=== PATIENT | male | born 1940 | race Caucasian/White ===

== ENCOUNTER → 2017-05-12 | Outpatient (CLI) | payer MEDICARE ==
[~2017-05-12] MED LIST: ACET325 PO; ALBU90OI INH; ALBU90OI61 INH; AMLO5 PO; ASCO500 PO; ASPI81CH PO; ASPI81EC PO; AZIT500 PO; BENA20 PO; DULERA 200 MCG/13 GM INH; FINA5 PO; FLONASE ALLERG9.9 ML; GUAI600T33 PO; HYDCHL12.5 PO; LEVFLO500 PO; LEVSOD88 PO; PRED10 PO; Percocet 5-3251 EACH PO; SIMV10 PO; TAMS.4ER PO; TIOT18 INH; TRIHYD253A PO; VIT1CAPS12
== END | disposition home or self-care (01) ==
LOC: PLD 13:26 → LAB SHORT 13:26
DX: L72.0 Epidermal cyst (principal)
CPT/HCPCS: 88304; 88305

== ENCOUNTER 2021-03-28 07:44 | Inpatient (IN) | payer MEDICARE ==
[~2021-03-28] VITALS: Ht 172.7 cm; Wt 90.9 kg
[~2021-03-28 07:44] MED LIST changes: +DULERA 200 MCG-13 GM INH; -DULERA 200 MCG/13 GM INH
[2021-03-28 08:26] LABS: Hematocrit 46.2 % (37.0-53.0); Hemoglobin 15.2 g/dL (13.5-17.5); Mean Corpuscular HGB 29.5 pg (26.0-34.0); Mean Corpuscular HGB Conc 32.9 g/dL (31.5-36.5); Mean Corpuscular Volume 90 fL (80-100); Mean Platelet Volume 11.1 fL (9.1-12.4); Platelet Count 130 K/mm3 (150-400); RDW Coefficient Variation 15.9 % (11.7-14.2); RDW Standard Deviation 52.1 fL (35.1-46.3); Red Blood Cell Count 5.15 M/mm3 (4.30-5.90); White Blood Cell Count 6.58 K/mm3 (4.00-11.30)
[2021-03-28 08:51] LABS: Alanine Aminotransfer (ALT/SGP 46 U/L (12-78); Albumin, Blood 3.4 g/dL (3.4-5.0); Alk Phos 73 U/L (50-136); Anion Gap 5 mmol/L (6-16); Aspartate Aminotrans (AST/SGOT 47 U/L (12-37); BASOPHILS ABSOLUTE MAN 0.06 K/mm3 (0.00-0.23); BASOPHILS PERCENT MAN 1 % (0-2); Bilirubin, Total 0.7 mg/dL (0.1-1.0); Blood Urea Nitrogen 23 mg/dL (8-24); Bun/Creatinine Ratio 25.4 (12.0-20.0); CO2, Blood 29 mmol/L (21-32); Calcium, Blood 8.6 mg/dL (8.5-10.1); Chloride, Blood 108 mmol/L (98-108); Creatinine, Blood 0.91 mg/dL (0.60-1.20); EOSINOPHILS PERCENT MAN 0 % (0-6); Globulin, Blood 3.5 g/dL (2.2-4.0); Glomerular Filtration Rate >60 (60-); Glucose, Blood 123 mg/dL (70-99); LYMPHOCYTES ABSOLUTE MAN 0.39 K/mm3 (0.84-5.20); LYMPHOCYTES PERCENT MAN 6 % (21-46); MONOCYTES ABSOLUTE MAN 0.59 K/mm3 (0.16-1.47); MONOCYTES PERCENT MAN 9 % (4-13); MYELOCYTE ABSOLUTE MAN 0.06 K/mm3 (0.00-0.00); MYELOCYTE PERCENT MAN 1 % (0-0); NEUTROPHILS ABSOLUTE MAN 5.46 K/mm3 (1.96-9.15); Potassium, Blood 4.1 mmol/L (3.5-5.5); SEG NEUTROPHILS PERCENT MAN 83 % (41-73); Sodium, Blood 142 mmol/L (136-145); TOTAL CELLS COUNTED 100; Total Protein, Blood 6.9 g/dL (6.4-8.2); Troponin I <0.015 ng/mL (0.000-0.040)
[2021-03-28 09:30] LABS: Influenza A, PCR NEGATIVE (NEGATIVE); Influenza B, PCR NEGATIVE (NEGATIVE); Resp Syncytial Virus, PCR NEGATIVE (NEGATIVE)
[2021-03-28 09:33] LABS: SARS-Cov-2 (COVID-19) PCR, MMC POSITIVE (NEGATIVE)
--- NOTE | 2021-03-28 13:12 | NUR ---
1245 Got telephone report from Chas Sanford RN. Pt will be coming to PCU 2.
--- NOTE | 2021-03-28 15:31 | NUR ---
Call to Jayashree pt's to request that his home CPAP be brought in by a family member so that the pt can use it this evening. She said she will have one of his daughters bring it once she is off of work today.
--- NOTE | 2021-03-28 15:35 | NUR ---
Pt attempted OOB independently, setting off the bed alarm. He said that he needed to use the toilet. Assisted to BSC while on 4 l/min oxygen, and required increase to 6 l/min with the n.c. in his mouth in order to maintain spo2 greater than 90% during the activity. Audible wheezing noted. RT Garret provided a hi-flow nasal cannula for use with higher flow as needed. Pt was incontinent in attends, did not void in thebedside commode. Assisted back into bed, HOB elevated to comfort, oxygen delivery reduced back to 4 l/min.
[2021-03-28 17:49] LABS: Source, Urine Clean Catch
--- NOTE | 2021-03-28 17:49 | NUR ---
oxygen needs increased to 7 l/min while eating dinner
[2021-03-28 17:53] LABS: Bilirubin, Urine Neg (Neg); Blood, Urine 2+ (Neg); Color, Urine Yellow (P-Yellow); Glucose Qualitative, Urine Neg (Neg); Ketones, Urine 1+ (Neg); Leukocyte Esterase, Urine 2+ (Neg); Nitrite, Urine Neg (Neg); Protein, Urine 2+ (Neg); Specific Gravity, Urine 1.025 (1.003-1.022); Urobilinogen, Urine NORM (Normal)
[2021-03-28 18:06] LABS: Appearance, Urine Hazy (Clear)
[2021-03-28 18:09] LABS: Bacteria Many /hpf; Calcium Oxalate Crystals Few /hpf; Hyaline Casts Rare /lpf (0-2); Squamous Epithelial Cells Few /hpf (Few)
--- NOTE | 2021-03-28 18:44 | NUR ---
Pt is very forgetful. States he is going home tomorrow. STates he has not seen a doctor. Difficulty remembering how to use the call light. Bed alarm is on.
[2021-03-29 04:26] LABS: BASOPHILS ABSOLUTE AUTO 0.01 K/mm3 (0.00-0.23); BASOPHILS PERCENT AUTO 0 % (0-2); EOSINOPHILS PERCENT AUTO 0 % (0-6); Hematocrit 48.9 % (37.0-53.0); Hemoglobin 15.4 g/dL (13.5-17.5); IMMATURE GRAN ABSOLUTE AUTO 0.02 K/mm3 (0.00-0.10); IMMATURE GRAN PERCENT AUTO 0 % (0-1); LYMPHOCYTES ABSOLUTE AUTO 0.33 K/mm3 (0.84-5.20); LYMPHOCYTES PERCENT AUTO 6 % (21-46); MONOCYTES ABSOLUTE AUTO 0.46 K/mm3 (0.16-1.47); MONOCYTES PERCENT AUTO 9 % (4-13); Mean Corpuscular HGB 28.5 pg (26.0-34.0); Mean Corpuscular HGB Conc 31.5 g/dL (31.5-36.5); Mean Corpuscular Volume 91 fL (80-100); Mean Platelet Volume 10.7 fL (9.1-12.4); NEUTROPHILS ABSOLUTE AUTO 4.57 K/mm3 (1.96-9.15); NEUTROPHILS PERCENT AUTO 85 % (41-73); Platelet Count 144 K/mm3 (150-400); RDW Coefficient Variation 15.9 % (11.7-14.2); RDW Standard Deviation 52.8 fL (35.1-46.3); White Blood Cell Count 5.39 K/mm3 (4.00-11.30)
[2021-03-29 05:26] LABS: Albumin, Blood 3.1 g/dL (3.4-5.0); Anion Gap 7 mmol/L (6-16); Blood Urea Nitrogen 24 mg/dL (8-24); Bun/Creatinine Ratio 30.9 (12.0-20.0); CO2, Blood 26 mmol/L (21-32); Calcium, Blood 8.5 mg/dL (8.5-10.1); Chloride, Blood 108 mmol/L (98-108); Creatinine, Blood 0.78 mg/dL (0.60-1.20); Glomerular Filtration Rate >60 (60-); Glucose, Blood 145 mg/dL (70-99); Magnesium, Blood 2.3 mg/dL (1.6-2.4); Potassium, Blood 4.8 mmol/L (3.5-5.5); Sodium, Blood 141 mmol/L (136-145)
--- NOTE | 2021-03-29 12:48 | NUR ---
Spoke with the pt's , Jayashree by phone to give her an update on the pt condition. States that her daughter Jj will be visiting him today during visiting hours.
--- NOTE | 2021-03-29 13:07 | NUR ---
Noted pt had fallen asleep while sitting up in chair, after eating lunch. Assisted to stand with gait belt and walker and transfered to bed for a nap. Hypoxia to 85% noted on 4 l/min; up to 8 l/min for recovery, now on 6 l/min spo2 is 89-90% while sitting in the bed, HOB elevated 30 degrees. Light dimmed for sleep. Bed alarm is on.
--- NOTE | 2021-03-29 13:47 | NUR ---
Oxygen delivery reduced to 4 l/min; pt had spo2 of 96% on 6 l/min at rest while napping. Spo2 following the adjustment is now 91-92%.
--- NOTE | 2021-03-29 16:56 | NUR ---
Encouraged pt to use flutter valve, and to sit on side of bed or in chair for all meals. Daughter Jj is at the bedside; she is also reinforcing this pt teaching as well. Jj states that she is willing to be the caregiver night time babysitter for the pt should he be in need of one at time of discharge. The pt and his family do NOT want him to be discharged to SNF for any reason. Jj states emphatically that she is comfortable as a WEB PRESS OPERATOR APPRENTICE to care for her dad at his home.
--- NOTE | 2021-03-29 17:16 | NUR ---
I attempted to visit the patient in his [facility] room PCU02 and was unable to. I also called his spouse Michelle [phone] and left a message. I also tried to call his daughter Bianca Scott [phone].
[2021-03-30 04:10] LABS: BASOPHILS ABSOLUTE AUTO 0.01 K/mm3 (0.00-0.23); BASOPHILS PERCENT AUTO 0 % (0-2); EOSINOPHILS PERCENT AUTO 0 % (0-6); Hematocrit 44.4 % (37.0-53.0); Hemoglobin 14.2 g/dL (13.5-17.5); IMMATURE GRAN ABSOLUTE AUTO 0.05 K/mm3 (0.00-0.10); IMMATURE GRAN PERCENT AUTO 1 % (0-1); LYMPHOCYTES ABSOLUTE AUTO 0.23 K/mm3 (0.84-5.20); LYMPHOCYTES PERCENT AUTO 3 % (21-46); MONOCYTES ABSOLUTE AUTO 0.75 K/mm3 (0.16-1.47); MONOCYTES PERCENT AUTO 9 % (4-13); Mean Corpuscular HGB 28.9 pg (26.0-34.0); Mean Corpuscular Volume 90 fL (80-100); NEUTROPHILS ABSOLUTE AUTO 7.72 K/mm3 (1.96-9.15); NEUTROPHILS PERCENT AUTO 88 % (41-73); Platelet Count 149 K/mm3 (150-400); RDW Coefficient Variation 15.9 % (11.7-14.2); RDW Standard Deviation 52.8 fL (35.1-46.3); Red Blood Cell Count 4.91 M/mm3 (4.30-5.90); White Blood Cell Count 8.76 K/mm3 (4.00-11.30)
[2021-03-30 05:00] LABS: Albumin, Blood 2.7 g/dL (3.4-5.0); Anion Gap 6 mmol/L (6-16); Blood Urea Nitrogen 35 mg/dL (8-24); Bun/Creatinine Ratio 39.1 (12.0-20.0); CO2, Blood 28 mmol/L (21-32); Calcium, Blood 7.8 mg/dL (8.5-10.1); Chloride, Blood 106 mmol/L (98-108); Creatinine, Blood 0.89 mg/dL (0.60-1.20); Glomerular Filtration Rate >60 (60-); Glucose, Blood 131 mg/dL (70-99); Magnesium, Blood 2.2 mg/dL (1.6-2.4); Phosphorus, Blood 3.9 mg/dL (2.5-4.9); Potassium, Blood 4.6 mmol/L (3.5-5.5); Sodium, Blood 140 mmol/L (136-145)
--- NOTE | 2021-03-30 05:55 | NUR ---
SHIFT SUMMARY PATIENT A&OX4, WITH OCCASIONAL ANXIETY AND GENERALIZED WEAKNESS. FORGETFULL AT TIMES. ON HOME DOSE OF 4L NC SATING LOW 90'S. 6L WITH EXERTIONAL ACTIVITY. STATES NO MORE SOB THEN USUAL. SR/ST ON THE MONITOR. NO PAIN OR DISTRESS NOTED UPON ASSESSMENT. TOLERATING MECH SOFT DIET WITHOUT ISSUE. ENCOURAGING SELF TURNING IN BED. INCONTINENT IN BRIEF AT TIMES AND CALLS RN APPROPRIATLY TO BE CHANGED.NO ACUTE CONCERNS AT THIS TIME. WILL CONTINUE PLAN OF CARE UNTIL REPORT GIVEN TO DAYSHIFT RN.
--- NOTE | 2021-03-30 18:17 | NUR ---
SHIFT SUMMARY; ASSUMED CARE AT 0700. 4L O2 VIA NC WITH CPAP AT NOC. A/A/OX4, REPOSITIONS SELF IN BED NEEDED. INCONTINANT DURING SHIFT WITH ATTENDS AND BEDDING CHANGE. ASSISTED TO CHAIR AT BEDSIDE FOR MEALS. DESATS WITH EXERTION BUT RECOVERS WITHIN 5 MINS. VSS, [employer] O2 SAT 92%. L/S DIM-WHEEZE T/O. WILL CONTINUE TO MONITOR AND TREAT UNTIL CHANGE OF SHIFT.
[2021-03-31 04:16] LABS: BASOPHILS ABSOLUTE AUTO 0.01 K/mm3 (0.00-0.23); BASOPHILS PERCENT AUTO 0 % (0-2); EOSINOPHILS PERCENT AUTO 0 % (0-6); Hematocrit 45.9 % (37.0-53.0); Hemoglobin 14.6 g/dL (13.5-17.5); IMMATURE GRAN ABSOLUTE AUTO 0.05 K/mm3 (0.00-0.10); IMMATURE GRAN PERCENT AUTO 1 % (0-1); LYMPHOCYTES ABSOLUTE AUTO 0.19 K/mm3 (0.84-5.20); LYMPHOCYTES PERCENT AUTO 2 % (21-46); MONOCYTES ABSOLUTE AUTO 0.71 K/mm3 (0.16-1.47); MONOCYTES PERCENT AUTO 7 % (4-13); Mean Corpuscular HGB 28.9 pg (26.0-34.0); Mean Corpuscular HGB Conc 31.8 g/dL (31.5-36.5); Mean Corpuscular Volume 91 fL (80-100); Mean Platelet Volume 11.3 fL (9.1-12.4); NEUTROPHILS ABSOLUTE AUTO 9.86 K/mm3 (1.96-9.15); NEUTROPHILS PERCENT AUTO 91 % (41-73); Platelet Count 136 K/mm3 (150-400); RDW Coefficient Variation 15.9 % (11.7-14.2); RDW Standard Deviation 53.1 fL (35.1-46.3); Red Blood Cell Count 5.05 M/mm3 (4.30-5.90); White Blood Cell Count 10.82 K/mm3 (4.00-11.30)
[2021-03-31 04:32] LABS: Albumin, Blood 2.6 g/dL (3.4-5.0); Anion Gap 3 mmol/L (6-16); Blood Urea Nitrogen 36 mg/dL (8-24); Bun/Creatinine Ratio 48.7 (12.0-20.0); C-REACTIVE PROTEIN, EXT RANGE 0.856 mg/dL (0.000-0.300); CO2, Blood 30 mmol/L (21-32); Chloride, Blood 107 mmol/L (98-108); Creatinine, Blood 0.74 mg/dL (0.60-1.20); Glomerular Filtration Rate >60 (60-); Glucose, Blood 140 mg/dL (70-99); Magnesium, Blood 2.3 mg/dL (1.6-2.4); Potassium, Blood 4.7 mmol/L (3.5-5.5); Sodium, Blood 140 mmol/L (136-145)
--- NOTE | 2021-03-31 06:21 | NUR ---
PT A/OX4. ATTEMPTED TO WEAN DOWN FROM 8LO2NC BLEEDING INTO CPAP. POORLY TOLERATED. O2 SAT 87% ON 6L O2 CPAP. CONTINUE ON 8L AT THIS TIME.
--- NOTE | 2021-03-31 10:46 | NUR ---
PATIENT ALERT AND ORIENTED X4. AT TIMES A LITTLE SLOW TO RESPOND. PERRLA. DENIES NUMBNESS/TINGLING. ABLE TO MOVE ALL EXTREMITIES. SLIGHT WEAKNESS THROUGHOUT. SKIN OVERALL PALE AND FRAGILE. TELE SHOWING SINUS RHYTHM WITH HR 80'S. DENIES CHEST PAIN/PRESSURE. BP STABLE. ON 9L O2 HIGH FLOW NASAL CANNULA AT THIS TIME. WILL ASSESS AND TITRATE NEEDED THROUGHOUT SHIFT. LUNGS SOUNDING TIGHT AND DIMINISHED. PATIENT HAS HISTORY OF LUNG CANCER WITH RADIATION. FREQUENT DRY COUGH. DENIES SPUTUM PRODUCTION AND DENIES NEED FOR ANY COUGH MEDICINE. DENIES ABDOMINAL PAIN/NAUSEA. USING URINAL IN BED, PRODUCING FREQUENT SMALL AMOUNTS OF URINE. TOLERATING PO DIET AND MEDS. ANTIBIOTICS INFUSING AT THIS TIME. DR. PRADO IN TO SEE PATIENT THIS AM, UPDATED ON O2 NEED AND BLOOD CULTURES. CALL LIGHT IN REACH. WILL CONTINUE TO MONITOR.
--- NOTE | 2021-03-31 18:44 | NUR ---
SHIFT SUMMARY: PATIENT REMAINS ALERT AND ORIENTED. DAUGHTER AT BEDSIDE DURING VISITING HOURS. PATIENT ON 8-12 L THROUGHOUT DAY. DURING EVENING PATIENT TRANSITIONED TO BIPAP WITH 7L 02 BLEED IN SATING LOW 90'S. DESATS TO LOW 80'S WITH MOVEMENT. NO CHANGES IN TELE. CONTINUE TO HAVE DRY/TIGHT COUGH. DENIES COUGH MEDICINES. ANTIBIOTICS AND ANTIVIRAL INFUSED. PATIENT ANXIOUS TO GET HOME AND KEEPS ASKING WHEN HE CAN GET OUT OF HERE. CALL LIGHT IN REACH. CALLING APPROPRIATELY. VITAL SIGNS STABLE. DENIES NEEDS AT THIS TIME. WILL CONTINUE TO MONITOR AND REPORT OFF.
[2021-04-01 04:04] LABS: BASOPHILS ABSOLUTE AUTO 0.01 K/mm3 (0.00-0.23); BASOPHILS PERCENT AUTO 0 % (0-2); EOSINOPHILS PERCENT AUTO 0 % (0-6); Hematocrit 44.5 % (37.0-53.0); Hemoglobin 14.3 g/dL (13.5-17.5); IMMATURE GRAN ABSOLUTE AUTO 0.05 K/mm3 (0.00-0.10); IMMATURE GRAN PERCENT AUTO 1 % (0-1); LYMPHOCYTES ABSOLUTE AUTO 0.19 K/mm3 (0.84-5.20); LYMPHOCYTES PERCENT AUTO 3 % (21-46); MONOCYTES ABSOLUTE AUTO 0.43 K/mm3 (0.16-1.47); MONOCYTES PERCENT AUTO 6 % (4-13); Mean Corpuscular HGB 29.2 pg (26.0-34.0); Mean Corpuscular HGB Conc 32.1 g/dL (31.5-36.5); Mean Corpuscular Volume 91 fL (80-100); Mean Platelet Volume 11.7 fL (9.1-12.4); NEUTROPHILS ABSOLUTE AUTO 6.11 K/mm3 (1.96-9.15); NEUTROPHILS PERCENT AUTO 90 % (41-73); Platelet Count 125 K/mm3 (150-400); RDW Coefficient Variation 15.6 % (11.7-14.2); RDW Standard Deviation 52.1 fL (35.1-46.3); White Blood Cell Count 6.79 K/mm3 (4.00-11.30)
[2021-04-01 04:41] LABS: Albumin, Blood 2.5 g/dL (3.4-5.0); Anion Gap 5 mmol/L (6-16); Blood Urea Nitrogen 36 mg/dL (8-24); Bun/Creatinine Ratio 51.6 (12.0-20.0); CO2, Blood 29 mmol/L (21-32); Calcium, Blood 7.8 mg/dL (8.5-10.1); Chloride, Blood 108 mmol/L (98-108); Glomerular Filtration Rate >60 (60-); Glucose, Blood 149 mg/dL (70-99); Magnesium, Blood 2.3 mg/dL (1.6-2.4); Phosphorus, Blood 3.2 mg/dL (2.5-4.9); Potassium, Blood 4.8 mmol/L (3.5-5.5); Sodium, Blood 142 mmol/L (136-145)
--- NOTE | 2021-04-01 10:01 | NUR ---
PATIENT ALERT AND ORIENTED X4 FOR THE MOST PART. AT TIMES SLOW RESPONSES AND CONFUSING STATEMENTS. CONTINUE TO REINFORCE EDUCATION. PERRLA. DENIES NUMBNESS/TINLGING. ABLE TO MOVE ALL EXTREMITIES IN BED. USING WALKER TO TRANSFER TO RECLINER. AZAM HOSE STOCKINGS IN PLACE. EDEMA NOTED IN BILATERAL LOWER AND UPPER EXTREMITIES. TELE SHOWING SINUS RHYTHM WITH HR 70'S. DENIES CHEST PAIN/PRESSURE. VITAL SIGNS STABLE. ON 12L O2 HIGH FLOW NASAL CANNULA. PATIENT MOUTH BREATHING AND NASAL CANNULA IN MOUTH AT THIS TIME SATING 89-93%. DESATS WITH MOVEMENT. RIGHT SIDE OF LUNGS SOUNDING TIGHT WITH MINIMAL EXPIRATORY WHEEZE. ABLE TO HEAR MORE AIR MOVEMENT FROM LEFT SIDE OF LUNGS. OVERALL DIMINISHED IN BASES. DRY COUGH. NOT PRODUCING ANY SPUTUM. PATIENT STATES HE HAS HAD THAT COUGH FOREVER. DENIES NEED FOR ANY TYPE OF COUGH MEDICINE. DENIES ABDOMINAL PAIN/NAUSEA. TOLERATING PO DIET. ATTENDS IN PLACE. USING URINAL AND PRODUCING SMALL AMOUNTS OF URINE, THAT IS TALAT COLORED. ANTIBIOTICS INFUSED. CALL LIGHT IN REACH. CHAIR ALARM IN RECLINER AT THIS TIME. WILL CONTINUE TO MONITOR.
--- NOTE | 2021-04-01 18:38 | NUR ---
SHIFT SUMMARY: NO ACUTE CHANGES. VITAL SIGNS REMAIN STABLE. NO CHANGES IN TELE. UP IN RECLINER FOR MOST OF THE DAY. DAUGHTER IN TO VISIT. REMAINS ON HIGH FLOW NASAL CANNULA AT THIS TIME ON 9L SATING 90-93%. DENIES SOB. COUGH REMAINS UNCHANGED. USING PICKLE AND INCENTIVE SPIROMETER IN ROOM. EATING WELL. WATCHING TV AT THIS TIME. DENIES NEEDS. WILL CONTINUE TO MONITOR AND REPORT OFF.
--- NOTE | 2021-04-01 21:59 | NUR ---
ASSUMED CARE OF PATIENT AT 1900. A/OX3 WITH BEING UNABLE TO SAY WHY HE HIS HERE. REPORTS NO PAIN, CP/PRESSURE, N/V. MAINTAINING 89-92% ON 9L NC PLACED IN HIS MOUTH (MOUTH BREATHER). DESATS WITH ACTIVITY BUT RECOVERS QUICKLY. LS EXPIRATORY WHEEZE IN UPPER LOBES AND DIM LOWER. OCCASIONAL DRY COUGH. BLE 1+ MINIMAL EDEMA, TRACE IN HANDS. PATIENT SEEMS VERY WITHDRAWN. WILL UPDATE CHANGES OCCUR.
[2021-04-02 03:56] LABS: BASOPHILS ABSOLUTE AUTO 0.02 K/mm3 (0.00-0.23); BASOPHILS PERCENT AUTO 0 % (0-2); EOSINOPHILS PERCENT AUTO 0 % (0-6); Hematocrit 44.9 % (37.0-53.0); Hemoglobin 14.7 g/dL (13.5-17.5); IMMATURE GRAN PERCENT AUTO 1 % (0-1); LYMPHOCYTES ABSOLUTE AUTO 0.24 K/mm3 (0.84-5.20); LYMPHOCYTES PERCENT AUTO 3 % (21-46); MONOCYTES ABSOLUTE AUTO 0.53 K/mm3 (0.16-1.47); MONOCYTES PERCENT AUTO 6 % (4-13); Mean Corpuscular HGB 29.1 pg (26.0-34.0); Mean Corpuscular HGB Conc 32.7 g/dL (31.5-36.5); Mean Corpuscular Volume 89 fL (80-100); Mean Platelet Volume 11.4 fL (9.1-12.4); NEUTROPHILS ABSOLUTE AUTO 7.99 K/mm3 (1.96-9.15); NEUTROPHILS PERCENT AUTO 90 % (41-73); Platelet Count 135 K/mm3 (150-400); RDW Coefficient Variation 15.3 % (11.7-14.2); RDW Standard Deviation 50.1 fL (35.1-46.3); Red Blood Cell Count 5.05 M/mm3 (4.30-5.90); White Blood Cell Count 8.88 K/mm3 (4.00-11.30)
[2021-04-02 04:12] LABS: Albumin, Blood 2.5 g/dL (3.4-5.0); Anion Gap 1 mmol/L (6-16); Blood Urea Nitrogen 35 mg/dL (8-24); Bun/Creatinine Ratio 51.2 (12.0-20.0); C-REACTIVE PROTEIN, EXT RANGE 0.321 mg/dL (0.000-0.300); CO2, Blood 31 mmol/L (21-32); Calcium, Blood 8.1 mg/dL (8.5-10.1); Chloride, Blood 107 mmol/L (98-108); Creatinine, Blood 0.68 mg/dL (0.60-1.20); Glomerular Filtration Rate >60 (60-); Glucose, Blood 140 mg/dL (70-99); Magnesium, Blood 2.4 mg/dL (1.6-2.4); Phosphorus, Blood 3.2 mg/dL (2.5-4.9); Potassium, Blood 4.9 mmol/L (3.5-5.5); Sodium, Blood 139 mmol/L (136-145)
--- NOTE | 2021-04-02 18:49 | NUR ---
PT SUMMARY: PT REMAINED ON 9L OF O2 VIA HIFLO NASAL CANNULA, BIPAP AT BEDSIDE. ALERT AND ORIENTED X3 WITH MILD CONFUSION, WAS WANTING TO GO HOME TODAY. VITALS BP SYSTOLIC 120-160'S, HRR SR AT 70'S, SATS ABOVE 90% DESATS TO LOW 80'S WITH EXERTION, AFEBRILE. PT WAS ABLE TO WORK WITH PT TODAY WAS UP IN THE RECLINER AFTER LUNCH UNTIL DINNER TIME. PT NOTED TO HAVE SOME HARSH MOSIT COUGH BUT COULDNT COUGH ANYTHING OUT OFFERED COUGH MEDICINE BUT DECLINED DR DIAZ IS AWARE. DECREASE APPETITE DUE TO BREATHING ISSUES. DENIES PAIN FOR THE SHIFT, WAS REPOSTIONED FOR COMFORT. NO OTHER ISSUES REPORTED, WILL REPORT TO ONCOMING SHIFT
--- NOTE | 2021-04-02 22:03 | NUR ---
ASSUMED CARE OF PT AT 1900. A/0X3 WITH CONFUSION ON WHY HE IS HERE AND THE PRESIDENT. REPORTS NO PAIN, CP/PRESSURE. DOES REPORT PRODUCTIVE COUGH HOWEVER UNABLE TO DETERMINE COLOR/CONSISTENCY. MAINTAINING 95% ON 9L FACE MASK, LS EXP WHEEZE T/O ALL ANDRADE. SR ON TELE AVG 74. UPPER AND LOWER EXTREMITIES SLIGHTLY EDEMATOUS. WILL UPDATE CHANGES OCCUR.
[2021-04-03 05:51] LABS: BASOPHILS ABSOLUTE AUTO 0.04 K/mm3 (0.00-0.23); BASOPHILS PERCENT AUTO 1 % (0-2); EOSINOPHILS PERCENT AUTO 0 % (0-6); Hematocrit 45.5 % (37.0-53.0); Hemoglobin 14.9 g/dL (13.5-17.5); IMMATURE GRAN ABSOLUTE AUTO 0.18 K/mm3 (0.00-0.10); IMMATURE GRAN PERCENT AUTO 2 % (0-1); LYMPHOCYTES ABSOLUTE AUTO 0.23 K/mm3 (0.84-5.20); LYMPHOCYTES PERCENT AUTO 3 % (21-46); MONOCYTES ABSOLUTE AUTO 0.42 K/mm3 (0.16-1.47); MONOCYTES PERCENT AUTO 5 % (4-13); Mean Corpuscular HGB 29.1 pg (26.0-34.0); Mean Corpuscular HGB Conc 32.7 g/dL (31.5-36.5); Mean Corpuscular Volume 89 fL (80-100); Mean Platelet Volume 11.7 fL (9.1-12.4); NEUTROPHILS ABSOLUTE AUTO 7.51 K/mm3 (1.96-9.15); NEUTROPHILS PERCENT AUTO 90 % (41-73); Platelet Count 159 K/mm3 (150-400); RDW Coefficient Variation 15.1 % (11.7-14.2); RDW Standard Deviation 49.7 fL (35.1-46.3); Red Blood Cell Count 5.12 M/mm3 (4.30-5.90); White Blood Cell Count 8.38 K/mm3 (4.00-11.30)
[2021-04-03 06:42] LABS: Albumin, Blood 2.4 g/dL (3.4-5.0); Anion Gap 7 mmol/L (6-16); Blood Urea Nitrogen 29 mg/dL (8-24); Bun/Creatinine Ratio 41.3 (12.0-20.0); C-REACTIVE PROTEIN, EXT RANGE <0.290 mg/dL (0.000-0.300); CO2, Blood 28 mmol/L (21-32); Chloride, Blood 104 mmol/L (98-108); Glomerular Filtration Rate >60 (60-); Glucose, Blood 144 mg/dL (70-99); Phosphorus, Blood 3.4 mg/dL (2.5-4.9); Sodium, Blood 139 mmol/L (136-145)
[2021-04-03 17:35] LABS: PCO2 Arterial 46.6 mmHg (35-45); PO2 Arterial 50.6 mmHg (80-100); pH Blood Arterial 7.44 (7.35-7.45)
--- NOTE | 2021-04-03 18:00 | NUR ---
AIRVO PT ON 15L HI-LAKHWINDER NC, SITTING UP IN CHAIR, EATING DINNER. THIS RN TO PT RM D/T BIOX ALARMING IN THE 80's. PT COUGHING IN RM W/ DESAT LOW 78%. 15L NRB APPLIED IN ADDITION TO 15L HI-LAKHWINDER NC. SPO2 INCREASE TO 90-95%. RT TO RM W/ ARIVO FOR PT.
--- NOTE | 2021-04-03 18:46 | NUR ---
SHIFT SUMMARY PT A&O X3 W/ SOME FORGETFULNESS. PT VSS. MONITOR SHOWING SR, HR 70's. LUNG SOUNDS W/ WHEEZE T/O. PT DESAT W/ ACTIVITY. PT REPORTING PT ON RA DURING THE DAY BUT REQUIRES 4L NC W/ ACTIVITY @ BASELINE. PT W/ DESAT TO 78% ON 15L HI-LAKHWINDER NC WHEN COUGHING IN RM. 15L NRB APPLIED IN ADDITION TO 15L HI-LAKHWINDER NC. PT SPO2 > 92% ON AIRVO @ 50L FIO2 93%, PT TOLERATING WELL. SPOUSE AT BEDSIDE DURING TRANSITION TO AIRVO.
[2021-04-04 00:28] LABS: Source, Urine Catheter
[2021-04-04 00:30] LABS: Bilirubin, Urine Neg (Neg); Blood, Urine 3+ (Neg); Glucose Qualitative, Urine Neg (Neg); Ketones, Urine Neg (Neg); Leukocyte Esterase, Urine Neg (Neg); Nitrite, Urine Neg (Neg); Protein, Urine Neg (Neg); Specific Gravity, Urine 1.015 (1.003-1.022); Urobilinogen, Urine 1+ (Normal)
[2021-04-04 00:32] LABS: Appearance, Urine Clear (Clear); Color, Urine Yellow (P-Yellow)
[2021-04-04 00:36] LABS: Bacteria Not Seen /hpf; Renal Epithelial Rare /hpf (0-Rare); Squamous Epithelial Cells Not Seen /hpf (Few); White Blood Cells, Urine Not Seen /hpf (0-5)
[2021-04-04 00:37] LABS: Uric Acid Crystals Few /hpf
[2021-04-04 05:01] LABS: Base Excess Venous 9.5 mmol/L; Bicarbonate Venous 31.9 mmol/L (24.0-30.0); PCO2 Venous 47.1 mmHg (38-42); PO2 Venous 113 mmHg (38-42); pH Blood Venous 7.46 (7.34-7.37)
[2021-04-04 05:01] LABS: BASOPHILS ABSOLUTE AUTO 0.09 K/mm3 (0.00-0.23); BASOPHILS PERCENT AUTO 1 % (0-2); EOSINOPHILS PERCENT AUTO 0 % (0-6); Hematocrit 44.2 % (37.0-53.0); Hemoglobin 14.6 g/dL (13.5-17.5); IMMATURE GRAN ABSOLUTE AUTO 0.55 K/mm3 (0.00-0.10); IMMATURE GRAN PERCENT AUTO 5 % (0-1); LYMPHOCYTES ABSOLUTE AUTO 0.19 K/mm3 (0.84-5.20); LYMPHOCYTES PERCENT AUTO 2 % (21-46); MONOCYTES ABSOLUTE AUTO 0.52 K/mm3 (0.16-1.47); MONOCYTES PERCENT AUTO 5 % (4-13); Mean Corpuscular HGB 29.2 pg (26.0-34.0); Mean Corpuscular Volume 88 fL (80-100); Mean Platelet Volume 11.4 fL (9.1-12.4); NEUTROPHILS ABSOLUTE AUTO 9.24 K/mm3 (1.96-9.15); NEUTROPHILS PERCENT AUTO 87 % (41-73); Platelet Count 179 K/mm3 (150-400); RDW Coefficient Variation 14.9 % (11.7-14.2); RDW Standard Deviation 48.6 fL (35.1-46.3); White Blood Cell Count 10.59 K/mm3 (4.00-11.30)
[2021-04-04 05:21] LABS: Albumin, Blood 2.4 g/dL (3.4-5.0); Anion Gap 4 mmol/L (6-16); Blood Urea Nitrogen 31 mg/dL (8-24); CO2, Blood 31 mmol/L (21-32); Calcium, Blood 7.9 mg/dL (8.5-10.1); Chloride, Blood 104 mmol/L (98-108); Creatinine, Blood 0.66 mg/dL (0.60-1.20); Glomerular Filtration Rate >60 (60-); Glucose, Blood 150 mg/dL (70-99); Magnesium, Blood 2.5 mg/dL (1.6-2.4); Phosphorus, Blood 3.4 mg/dL (2.5-4.9); Potassium, Blood 5.3 mmol/L (3.5-5.5); Sodium, Blood 139 mmol/L (136-145)
[2021-04-04 05:51] LABS: BASOPHILS PERCENT MAN 0 % (0-2); EOSINOPHILS PERCENT MAN 0 % (0-6); LYMPHOCYTES ABSOLUTE MAN 0.21 K/mm3 (0.84-5.20); LYMPHOCYTES PERCENT MAN 2 % (21-46); MONOCYTES ABSOLUTE MAN 0.42 K/mm3 (0.16-1.47); MONOCYTES PERCENT MAN 4 % (4-13); MYELOCYTE ABSOLUTE MAN 0.42 K/mm3 (0.00-0.00); MYELOCYTE PERCENT MAN 4 % (0-0); NEUTROPHILS ABSOLUTE MAN 9.53 K/mm3 (1.96-9.15); SEG NEUTROPHILS PERCENT MAN 90 % (41-73); TOTAL CELLS COUNTED 100
--- NOTE | 2021-04-04 06:14 | NUR ---
shift summary pt rested well through the night. alert and oriented, able to make needs known. cooperative with plan of care. sats >95% on cpap at pressure setting of 10 @hs. unable to void to urinal without making mess and lyin in it, placed layne to help assist and minimize desats with activity. small smear. call light witihn reach, bed in lowest position, will continue to monitor.
--- NOTE | 2021-04-04 18:17 | NUR ---
SHIFT SUMMARY PT A&O X4. VSS. LUNG SOUNDS DIM W/ WHEEZE. SPO2 > 90% ON HI-LAKHWINDER NC @ 60L, FIO2 65%. PT REMAINING IN BED TODAY D/T INCREASING O2 DEMANDS, DESATING W/ ANY IN BED MOVEMENT OR COUGHING. WELCH CATH PATENT & DRAINING. PT DAUGHTER TO BEDSIDE TO VISIT. NO OTHER EVENTS.
[2021-04-05 03:45] LABS: Base Excess Venous 8.8 mmol/L; Bicarbonate Venous 31.1 mmol/L (24.0-30.0); PCO2 Venous 48.8 mmHg (38-42); PO2 Venous 117 mmHg (38-42); pH Blood Venous 7.44 (7.34-7.37)
[2021-04-05 04:13] LABS: Hematocrit 47.3 % (37.0-53.0); Hemoglobin 15.1 g/dL (13.5-17.5); Mean Corpuscular HGB 28.5 pg (26.0-34.0); Mean Corpuscular HGB Conc 31.9 g/dL (31.5-36.5); Mean Corpuscular Volume 89 fL (80-100); Mean Platelet Volume 11.7 fL (9.1-12.4); Platelet Count 215 K/mm3 (150-400); RDW Coefficient Variation 15.1 % (11.7-14.2); Red Blood Cell Count 5.29 M/mm3 (4.30-5.90); White Blood Cell Count 13.13 K/mm3 (4.00-11.30)
[2021-04-05 04:24] LABS: Albumin, Blood 2.6 g/dL (3.4-5.0); Anion Gap 2 mmol/L (6-16); Blood Urea Nitrogen 36 mg/dL (8-24); Bun/Creatinine Ratio 52.3 (12.0-20.0); CO2, Blood 33 mmol/L (21-32); Calcium, Blood 8.2 mg/dL (8.5-10.1); Chloride, Blood 103 mmol/L (98-108); Creatinine, Blood 0.69 mg/dL (0.60-1.20); Glomerular Filtration Rate >60 (60-); Glucose, Blood 148 mg/dL (70-99); Magnesium, Blood 2.8 mg/dL (1.6-2.4); Phosphorus, Blood 3.5 mg/dL (2.5-4.9); Potassium, Blood 5.3 mmol/L (3.5-5.5); Sodium, Blood 138 mmol/L (136-145)
--- NOTE | 2021-04-05 05:12 | NUR ---
SHIFT SUMMARY PT RESTED WELL THROUGH THE NIGHT. ALERT AND ORIENTED, ABLE TO MAKE NEEDS KNOWN. COOPERATIVE WITH PLAN OF CARE. SATS >92% ON CPAP PRESSURE SETTING 10/60%FIO2 DURING HOURS OF SLEEP. TRANSITIONED TO ARIVO 60L/60% FIO2 WHEN AWAKE. YURI STROUDIANING TO GRAVITY, NATHANIEL CARE PERFORMED - 400ML UOP. NO BM. NO PAIN. VSS. CALL LIGHT WITHIN REACH, BED IN LOWEST POSITION. WILL CONTINUE TO MONITOR.
--- NOTE | 2021-04-05 05:21 | NUR ---
SHIFT SUMMARY PT VERY AGITATED AND VERY MANIPULATIVE IN REGARDS TO WANTING TO GET IV PAIN MEDS. SHE WILL TELL LIES AND DEMAND TO SEE THE DOCTOR NONSTOP. AT ONE POINT IN NIGHT, PT DEMANDED TO GET DRESSED SO SHE CAN LEAVE AMA. MD STATED THEY ARE NOT GIVING ANY FUTHER PAIN MEDS, AND MAY DO A TWO MD HOLD PT HAS A NEW TRACH THAT DOES REQUIRE OXYGEN TO MAINTAIN SATS. TELE READS NSR. NO CHEST PAIN. O2 >95% ON 10L BLOWBY. INCONTINENT VOIDS - CHANGED X2. PRN PAIN MEDS GIVEN ORALLY. PT DID HAVE FALL AT 1999 - PT SLID OUT OF BED AFTER FREQUENTLY ATTEMPTING TO GET OUT OF BED. PCT WALKED BY ROOM, SAW PATIENT SITING AGAINST BED. NO INJURY, UNWITNESSED, DID NOT HIT HEAD AND VSS. IRIS COMPLETED. PT OKAY IN REGARDS TO "FALL". ALSO WANTED TO NOTE PATIENT IS FREQUENTLY SAYING TO NEW ONCOMING NURSES THAT SHE HAD HER DILAUDID TABLET SET ASIDE ON THE TABLE TO SAVE FOR A LATER TIME, AND A NURSE OR STAFF MEMBER "TOOK IT", AND REQUESTSS THAT THE RN GETS HER AN ADDITONAL PAIN MED NOW. PT CANNOT BE TRUSTED WHATSOEVER. VSS. PT STABLE. CALL LIGHT WITHIN REACH, BED IN LOWEST POSTION. BED ALARM ON, WILL CONTINUE TO MONITOR.
[2021-04-05 05:43] LABS: BAND PERCENT MAN 1 % (0-8); BASOPHILS PERCENT MAN 0 % (0-2); EOSINOPHILS PERCENT MAN 0 % (0-6); METAMYELOCYTE ABSOLUTE MAN 0.26 K/mm3 (0.00-0.00); METAMYELOCYTE PERCENT MAN 2 % (0-0); MONOCYTES ABSOLUTE MAN 0.78 K/mm3 (0.16-1.47); MONOCYTES PERCENT MAN 6 % (4-13); MYELOCYTE ABSOLUTE MAN 0.13 K/mm3 (0.00-0.00); MYELOCYTE PERCENT MAN 1 % (0-0); NEUTROPHILS ABSOLUTE MAN 11.94 K/mm3 (1.96-9.15); SEG NEUTROPHILS PERCENT MAN 90 % (41-73); TOTAL CELLS COUNTED 100
--- NOTE | 2021-04-05 12:10 | NUR ---
UPDATE PT A&O X4, VSS. LUNG SOUDS DIM/COARSE, W/ EXP WHEEZE. CXR DONE IN PT RM THIS AM. PT SPO2 DECREASE TO 84% ON V60 HI-LAKHWINDER NC @ 70L, FIO2 70%. WHEN OFF CPAP THIS AM FOR MEAL. PT TRANSITIONED BACK TO CPAP: 10L, 50% O2 FOR SPO2 > 90%. PT W/ OCCASSIONALY PRODUCTIVE COUGH OF CLEAR SPUTUM W/ REPORT OF PINK TINGED AT TIMES. PT MOSTLY SWALLOWING SPUTUM PRODUCTION, THOUGH ENCOURAGED TO SPIT OUT. PT RESTING IN BED, USING BED POSITION ASSIST SETTINGS & PILLOWS FOR REPOSITIONING. WELCH CATH PATENT & DRAINING.
--- NOTE | 2021-04-05 18:52 | NUR ---
SHIFT SUMMARY PT CONTINUES TO BE A&O X4, VSS. MONITOR SHOWING SR, HR 60's-80's. V60 BEING USED. PT WEARING CPAP: 10, 50% O2 USED MAJORITY OF SHIFT, TRANSITIONING TO HI-LAKHWINDER NC @ 70L, FIO2 70% FOR MEALS ONLY, THEN TRANSITIONING BACK TO CPAP. PT W/ NO EVENTS THIS SHIFT.
[2021-04-06 03:55] LABS: Base Excess Venous 8.5 mmol/L; Bicarbonate Venous 31.1 mmol/L (24.0-30.0); PCO2 Venous 44.5 mmHg (38-42); PO2 Venous 90.2 mmHg (38-42); pH Blood Venous 7.47 (7.34-7.37)
[2021-04-06 05:07] LABS: Hematocrit 45.9 % (37.0-53.0); Mean Corpuscular HGB 29.3 pg (26.0-34.0); Mean Corpuscular HGB Conc 32.7 g/dL (31.5-36.5); Mean Corpuscular Volume 90 fL (80-100); Mean Platelet Volume 12.1 fL (9.1-12.4); Platelet Count 215 K/mm3 (150-400); RDW Coefficient Variation 15.1 % (11.7-14.2); RDW Standard Deviation 49.6 fL (35.1-46.3); Red Blood Cell Count 5.12 M/mm3 (4.30-5.90); White Blood Cell Count 11.76 K/mm3 (4.00-11.30)
--- NOTE | 2021-04-06 05:22 | NUR ---
SHIFT SUMMARY PT RESTED WELL THROUGH THE NIGHT. ALERT AND ORIENTED X3 - INTERMITTENT CONFUSION. COOPERATIVE WITH CARE. SATS >92% ON CPAP - PT HAS NOW BECOME MORE CPAP DEPENDENT - PRESSURE SETTING 10 70%FIO2. TELE READS NSR - RATE 54. PT IS PRETTY SOMNOLENT - DOESNT SEEM MOTIVATED, WANTS TO BE LEFT ALONE. WELCH DRAINING 550ML UOP. NO BM. NO PAIN. VSS. CALL LIGHT WITHIN REACH, BED IN LOWEST POSITION. WILL CONTINUE TO MONITOR.
[2021-04-06 06:13] LABS: Albumin, Blood 2.5 g/dL (3.4-5.0); Anion Gap 9 mmol/L (6-16); Blood Urea Nitrogen 41 mg/dL (8-24); Bun/Creatinine Ratio 56.9 (12.0-20.0); CO2, Blood 29 mmol/L (21-32); Calcium, Blood 8.1 mg/dL (8.5-10.1); Chloride, Blood 102 mmol/L (98-108); Creatinine, Blood 0.72 mg/dL (0.60-1.20); Glomerular Filtration Rate >60 (60-); Glucose, Blood 155 mg/dL (70-99); Magnesium, Blood 2.8 mg/dL (1.6-2.4); Phosphorus, Blood 4.5 mg/dL (2.5-4.9); Potassium, Blood 5.5 mmol/L (3.5-5.5); Sodium, Blood 140 mmol/L (136-145)
[2021-04-06 06:19] LABS: BAND PERCENT MAN 1 % (0-8); BASOPHILS PERCENT MAN 0 % (0-2); EOSINOPHILS PERCENT MAN 0 % (0-6); LYMPHOCYTES ABSOLUTE MAN 0.47 K/mm3 (0.84-5.20); LYMPHOCYTES PERCENT MAN 4 % (21-46); MONOCYTES ABSOLUTE MAN 0.82 K/mm3 (0.16-1.47); MONOCYTES PERCENT MAN 7 % (4-13); MYELOCYTE ABSOLUTE MAN 0.35 K/mm3 (0.00-0.00); MYELOCYTE PERCENT MAN 3 % (0-0); NEUTROPHILS ABSOLUTE MAN 10.11 K/mm3 (1.96-9.15); SEG NEUTROPHILS PERCENT MAN 85 % (41-73); TOTAL CELLS COUNTED 100
--- NOTE | 2021-04-06 17:30 | NUR ---
Pt seen he denied pain or nausea. mostly complained of great fatigued and wanted to go home. Review of pt with nursing and physician. Review of chart. pt states he has not seen his [employer] cq developer in [place] [facility]. He is seeing dr kennedy. Suggested considering pulmonolagy consult. Suggested some ice chips with ensure he is not tolerating meals. Nursing advised no supportive fluids reported to physician. will follow for plan of care. pt high risk for readmission.
--- NOTE | 2021-04-06 17:47 | NUR ---
SHIFT SUMMARY PT IS ALERT AND ORIENTED X4, AT TIMES IS SLOW TO RESPOND. SPO2 RANGES 85-95%. PT HAS REMAINED ON CPAP, PRESSURE 10, FIO2 @65% EXCEPT WHEN EATING MEALS PT WILL TRANSITION TO AIRVO AT 70L 100% FIO2, HE WILL DESATURATE TO 85% WITH EXERTION BUT RECOVERS WITH ENCOURAGEMENT TO DEEP BREATH. HE HAS DENIED CHEST PAIN OR PRESSURE T/O SHIFT, TELEMETRY MONITORING IN PLACE, NO CARDIAC EVENTS NOTED. THIS AM PATIENT APPEARED TO BE WITHDRAWN AND DID NOT WANT TO EAT OR DRINK, THE ONLY PO INTAKE WAS WATER WITH MEDICATIONS AND WAS LESS THAN 50ML. THIS NURSE OFFERED TO PROVIDE BED BATH FOR PATIENT AND PATIENT REFUSED. THIS NURSE PUT IN A CONSULT FOR PALLIATIVE CARE AND ALISHA CONDE CONSULTED WITH PT WELL DR WYNNE AND AGREED TO GET PULMONOLOGY ON BOARD. WHEN ARRIVED AT BEDSIDE THIS AFTERNOON PULMONOLOGY CONSULTED WITH PT WELL TO EDUCATE ABOUT PLAN OF CARE. WHEN IS AT BEDSIDE PT IS MORE COOPERATIVE AND WAS ENCOURAGED TO EAT BOTH LUNCH AND DINNER THEREFOR PO INTAKE IMPROVED. THIS AFTERNOON PATIENT EXPRESSED DESIRE TO GET INTO CHAIR, OCCUPATIONAL THERAPY CAME TO ASSESS PATIENT AND ASSISTED WITH AMBULATING PT TO CHAIR, KARL WINSLOW ALSO ASSISTED. RIGHT AC IS INFUSING NS AT 100ML/HR PER EMAR ORDERS. NO NAUSEA REPORTED. WELCH CATHETER IS IN PLACE AND DRAINING STRAW/CLEAR YELLOW OUTPUT WITH GRAVITY. IS STILL AT BEDSIDE. CALL LIGHT IN REACH, WILL CONTINUE TO MONITOR.
--- NOTE | 2021-04-07 05:37 | NUR ---
shift summary pt slept through entire night. alert and oriented, able to make needs known. cooperative with plan of care. seems a little unmotivated and defeated. does better with at bedside, as she is able to stay with him from [phone]. tele reads sinus tricia - 53. no c/o chest pain. sats >92% on cpap overnight - prssure setting of 10/65% fio2. layne draining to gravity, gricelda care performed. vss. no other pain. call light within reach, bed in lowest position. will continue to monitor.
--- NOTE | 2021-04-07 17:25 | NUR ---
SHIFT SUMMARY PT ALERT AND ORIENTED. FLAT AND WITHDRAWN THIS AM, BUT ONCE PT'S ARRIVED HE WAS MUCH MORE INVOLVED IN CARE AND MOTIVATED. BP STABLE. HR SB 50'S. O2 SATS HAVE REMAINED ABOVE 88% ON HIGH FLOW CANNULA 70L AND 70% FIO2. OCCASIONAL NONPRODUCTIVE COUGH NOTED. PT DENIES ANY PAIN. WELCH PATENT AND DRAINING CLEAR YELLOW URINE. NO BM THIS SHIFT. PT UP TO CHAIR AT THIS TIME EATING DINNER. AT BEDSIDE. CALL LIGHT IN REACH.
--- NOTE | 2021-04-07 19:58 | NUR ---
review of pt with nursing. some improvement. He drank another ensure over ice and brought food. Will update dietary. Will review prognosis with pulmonolgy and update dr kennedy.
[2021-04-08 03:30] LABS: Hematocrit 46.7 % (37.0-53.0); Hemoglobin 15.2 g/dL (13.5-17.5); Mean Corpuscular HGB 29.1 pg (26.0-34.0); Mean Corpuscular HGB Conc 32.5 g/dL (31.5-36.5); Mean Corpuscular Volume 89 fL (80-100); RDW Coefficient Variation 14.8 % (11.7-14.2); RDW Standard Deviation 48.7 fL (35.1-46.3); Red Blood Cell Count 5.23 M/mm3 (4.30-5.90); White Blood Cell Count 18.86 K/mm3 (4.00-11.30)
[2021-04-08 03:31] LABS: Mean Platelet Volume 11.7 fL (9.1-12.4); Platelet Count 190 K/mm3 (150-400)
[2021-04-08 03:50] LABS: BASOPHILS PERCENT MAN 0 % (0-2); EOSINOPHILS PERCENT MAN 0 % (0-6); LYMPHOCYTES ABSOLUTE MAN 0.18 K/mm3 (0.84-5.20); LYMPHOCYTES PERCENT MAN 1 % (21-46); MONOCYTES ABSOLUTE MAN 0.56 K/mm3 (0.16-1.47); MONOCYTES PERCENT MAN 3 % (4-13); MYELOCYTE ABSOLUTE MAN 0.75 K/mm3 (0.00-0.00); MYELOCYTE PERCENT MAN 4 % (0-0); NEUTROPHILS ABSOLUTE MAN 17.35 K/mm3 (1.96-9.15); SEG NEUTROPHILS PERCENT MAN 92 % (41-73); TOTAL CELLS COUNTED 100
[2021-04-08 03:59] LABS: Anion Gap 9 mmol/L (6-16); Blood Urea Nitrogen 38 mg/dL (8-24); Bun/Creatinine Ratio 57.8 (12.0-20.0); CO2, Blood 25 mmol/L (21-32); Calcium, Blood 8.3 mg/dL (8.5-10.1); Chloride, Blood 103 mmol/L (98-108); Creatinine, Blood 0.66 mg/dL (0.60-1.20); Glomerular Filtration Rate >60 (60-); Glucose, Blood 130 mg/dL (70-99); Potassium, Blood 5.8 mmol/L (3.5-5.5); Sodium, Blood 137 mmol/L (136-145)
--- NOTE | 2021-04-08 07:02 | NUR ---
SHIFT SUMMARY PT IS ALERT. PT HAS FLAT AFFECT AND HAD BEEN REFUSING CARE T/O THE NIGHT. PT DID NOT SLEEP VERY MUCH. VITALS ARE STABLE AND HAS BEEN ON CPAP SETTING T/O THE NIGHT WITH SATS ABOVE 90%. PT'S K+ WAS 5.8 AND CALL WAS MADE TO ; DR SPEARS GAVE ORDERS AND WERE PUT INTO EMAR. PT DENIES CHEST PAIN/PRESSURE, OR GENERAL PAIN. WELCH IS IN PLACE AND DRAINING. BED ALARM ACTIVE AND CALL LIGHT IS WITHIN REACH.
[2021-04-08 11:00] LABS: Anion Gap 5 mmol/L (6-16); Blood Urea Nitrogen 36 mg/dL (8-24); Bun/Creatinine Ratio 65.1 (12.0-20.0); CO2, Blood 26 mmol/L (21-32); Calcium, Blood 8.1 mg/dL (8.5-10.1); Chloride, Blood 102 mmol/L (98-108); Creatinine, Blood 0.55 mg/dL (0.60-1.20); Glomerular Filtration Rate >60 (60-); Glucose, Blood 98 mg/dL (70-99); Sodium, Blood 133 mmol/L (136-145)
--- NOTE | 2021-04-08 17:28 | NUR ---
SHIFT SUMMARY PT ALERT AND ORIENTED. FLAT AFFECT NOTED AT TIMES AND PT REFUSING ASPECTS OF CARE. BP STABLE. HR NSR. O2 SATS HAVE REMAINED ABOVE 90%, PT TITRATED DOWN ON HFT TO 65L 65%FIO2. PT HAS NONPRODUCTIVE COUGH. WELCH PATENT AND DRAINING CLEAR YELLOW URINE. ONE INCONTINENT BM THIS SHIFT. PT UP TO RECLINER FOR LUNCH, BUT STATES HE WAS TOO TIRED TO GET UP FOR DINNER. PT ABLE TO REPOSITION HIMSELF IN BED, BUT ENCOURAGED TO DO SO FREQUENTLY. WILL CONTINUE TO MONITOR AND REPORT TO ONCOMING RN.
[2021-04-09 04:32] LABS: BASOPHILS ABSOLUTE AUTO 0.11 K/mm3 (0.00-0.23); BASOPHILS PERCENT AUTO 1 % (0-2); EOSINOPHILS PERCENT AUTO 0 % (0-6); Hematocrit 46.7 % (37.0-53.0); Hemoglobin 15.3 g/dL (13.5-17.5); IMMATURE GRAN PERCENT AUTO 4 % (0-1); LYMPHOCYTES ABSOLUTE AUTO 0.36 K/mm3 (0.84-5.20); LYMPHOCYTES PERCENT AUTO 2 % (21-46); MONOCYTES ABSOLUTE AUTO 0.97 K/mm3 (0.16-1.47); MONOCYTES PERCENT AUTO 5 % (4-13); Mean Corpuscular HGB 29.3 pg (26.0-34.0); Mean Corpuscular HGB Conc 32.8 g/dL (31.5-36.5); Mean Corpuscular Volume 89 fL (80-100); Mean Platelet Volume 11.9 fL (9.1-12.4); NEUTROPHILS ABSOLUTE AUTO 17.12 K/mm3 (1.96-9.15); NEUTROPHILS PERCENT AUTO 88 % (41-73); Platelet Count 230 K/mm3 (150-400); RDW Standard Deviation 48.6 fL (35.1-46.3); Red Blood Cell Count 5.23 M/mm3 (4.30-5.90); White Blood Cell Count 19.36 K/mm3 (4.00-11.30)
[2021-04-09 04:53] LABS: Anion Gap 5 mmol/L (6-16); Blood Urea Nitrogen 35 mg/dL (8-24); Bun/Creatinine Ratio 60.3 (12.0-20.0); CO2, Blood 30 mmol/L (21-32); Calcium, Blood 8.3 mg/dL (8.5-10.1); Chloride, Blood 99 mmol/L (98-108); Creatinine, Blood 0.58 mg/dL (0.60-1.20); Glomerular Filtration Rate >60 (60-); Glucose, Blood 125 mg/dL (70-99); Potassium, Blood 4.9 mmol/L (3.5-5.5); Sodium, Blood 134 mmol/L (136-145)
--- NOTE | 2021-04-09 05:01 | NUR ---
SHIFT SUMMARY: PATIENT LETHARGIC AND DOES NOT PARTICIPATE IN CARE (WILL NOT LIFT ARM TO ASSIST IN PLACING BP CUFF, ASSIST WITH TURNING SELF, OR LIFT LEGS TO AID IN CLEAN UP). REFUSED NIGHTTIME CARE (TEETH BRUSHING, BED BATH, FACE CLOTH). PATIENT HAD LARGE BM IN ATTENDS AND DID NOT CALL FOR HELP OR MENTION IT TO STAFF DURING ROUNDS. STAFF CHECKED ATTENDS AND FOUND THE BM SO PATIENT WAS CLEANED AND LINENS WERE CHANGED. PATIENT BELIEVES HE IS GOING HOME TODAY. WILL CONTINUE TO MONITOR AND REPORT TO DAY RN.
--- NOTE | 2021-04-09 12:46 | NUR ---
PT REFUSED REPOSITIONING
--- NOTE | 2021-04-09 17:00 | NUR ---
PT ALERT & ORIENTED X 4. PT REFUSED LOVENOX MEDICATION IN AM. PT HAD FLAT AFFECT AND WAS WITHDRAWN THIS AM. PT'S ARRIVED AT 1430 AND THE PT'S MOOD IMPROVED AND WAS MORE RECEPTIVE TO CARE. PT BP WAS STABLE, SR 60'S. PT WAS ON HFNC 55L/NC 70% FIO2 WITH O2% SATS >90%. PT WAS GIVEN PARTIAL BEDBATH WITH NATHANIEL CARE PERFORMED. PT HAD A SMALL SMEAR BM DURING SHIFT. PT IS CURRENTLY SITTING UP IN CHAIR WITH AT BEDSIDE. CALL LIGHT IS WITHIN REACH.
--- NOTE | 2021-04-09 17:44 | NUR ---
CARE PROVIDED BY STUDENT RN SUPERVISED BY MYSELF. SHIFT ASSESMENT AND NURSING NOTES REVIEWED.
--- NOTE | 2021-04-09 18:17 | NUR ---
review of pt with nursing will continue to monitor prognosis.
[2021-04-10 04:10] LABS: BASOPHILS ABSOLUTE AUTO 0.09 K/mm3 (0.00-0.23); BASOPHILS PERCENT AUTO 0 % (0-2); EOSINOPHILS PERCENT AUTO 0 % (0-6); Hematocrit 45.1 % (37.0-53.0); Hemoglobin 15.1 g/dL (13.5-17.5); IMMATURE GRAN ABSOLUTE AUTO 0.59 K/mm3 (0.00-0.10); IMMATURE GRAN PERCENT AUTO 3 % (0-1); LYMPHOCYTES ABSOLUTE AUTO 0.29 K/mm3 (0.84-5.20); LYMPHOCYTES PERCENT AUTO 1 % (21-46); MONOCYTES ABSOLUTE AUTO 1.13 K/mm3 (0.16-1.47); MONOCYTES PERCENT AUTO 5 % (4-13); Mean Corpuscular HGB Conc 33.5 g/dL (31.5-36.5); Mean Corpuscular Volume 87 fL (80-100); Mean Platelet Volume 11.7 fL (9.1-12.4); NEUTROPHILS ABSOLUTE AUTO 19.24 K/mm3 (1.96-9.15); NEUTROPHILS PERCENT AUTO 90 % (41-73); Platelet Count 214 K/mm3 (150-400); RDW Coefficient Variation 14.7 % (11.7-14.2); RDW Standard Deviation 46.9 fL (35.1-46.3); Red Blood Cell Count 5.21 M/mm3 (4.30-5.90); White Blood Cell Count 21.34 K/mm3 (4.00-11.30)
[2021-04-10 04:29] LABS: Anion Gap 6 mmol/L (6-16); Blood Urea Nitrogen 32 mg/dL (8-24); Bun/Creatinine Ratio 45.5 (12.0-20.0); CO2, Blood 31 mmol/L (21-32); Calcium, Blood 8.3 mg/dL (8.5-10.1); Chloride, Blood 96 mmol/L (98-108); Glomerular Filtration Rate >60 (60-); Glucose, Blood 133 mg/dL (70-99); Sodium, Blood 133 mmol/L (136-145)
--- NOTE | 2021-04-10 05:10 | NUR ---
SHIFT SUMMARY: PATIENT A&O X3, VS STABLE T/O SHIFT, AND MAINTAINED O2 SATS >89% T/O SHIFT. MORE COOPERATIVE AND INTERACTIVE WITH CARE THAN PREVIOUS NOC SHIFT. PATIENT'S ABDOMEN IS FIRM WITH SOME TENDERNESS IN LOWER RIGHT QUADRANT. WELCH DRAINING TO GRAVITY WITH NORMAL OUTPUT. NO ADVERSE EVENTS THIS SHIFT. WILL CONTINUE TO MONITOR AND REPORT TO DAY RN.
--- NOTE | 2021-04-10 18:27 | NUR ---
PT SUMMARY: NO ACUTE CHANGE FOR THE SHIFT, HEATED HIFLO SETTINGS REMAINED AT 50L 50% DESATS TO 88% RECOVERS QUICK. VITALS STABLE AFEBRILE. /SOB WITH EXERTION. PT WAS ABLE TO WORK WITH PT TODAY GOT UP IN THE CHAIR WITH NO ISSUES. DENIES ANY PAIN FOR THE SHIFT, IN THE ROOM TO VISIT EXPECTING TO DC PT TO HOME PER PT'S REQUESTS IF NO LONGER IS ON HEATED HI-FLOW. WELCH DRAINING VIA GRAVITY, NS RUNNING AT 75MLS/HR. NO OTHER ISSUES REPORTED. WILL REPORT TO ONCOMING SHIFT
[2021-04-11 03:50] LABS: BASOPHILS ABSOLUTE AUTO 0.06 K/mm3 (0.00-0.23); BASOPHILS PERCENT AUTO 0 % (0-2); EOSINOPHILS PERCENT AUTO 0 % (0-6); Hematocrit 46.2 % (37.0-53.0); Hemoglobin 15.4 g/dL (13.5-17.5); IMMATURE GRAN ABSOLUTE AUTO 0.37 K/mm3 (0.00-0.10); IMMATURE GRAN PERCENT AUTO 2 % (0-1); LYMPHOCYTES PERCENT AUTO 2 % (21-46); MONOCYTES ABSOLUTE AUTO 0.68 K/mm3 (0.16-1.47); MONOCYTES PERCENT AUTO 4 % (4-13); Mean Corpuscular HGB 29.4 pg (26.0-34.0); Mean Corpuscular HGB Conc 33.3 g/dL (31.5-36.5); Mean Corpuscular Volume 88 fL (80-100); Mean Platelet Volume 11.5 fL (9.1-12.4); NEUTROPHILS ABSOLUTE AUTO 15.59 K/mm3 (1.96-9.15); NEUTROPHILS PERCENT AUTO 92 % (41-73); Platelet Count 178 K/mm3 (150-400); RDW Coefficient Variation 14.6 % (11.7-14.2); RDW Standard Deviation 47.5 fL (35.1-46.3); Red Blood Cell Count 5.24 M/mm3 (4.30-5.90)
[2021-04-11 04:09] LABS: Anion Gap 6 mmol/L (6-16); Blood Urea Nitrogen 29 mg/dL (8-24); Bun/Creatinine Ratio 44.3 (12.0-20.0); CO2, Blood 33 mmol/L (21-32); Calcium, Blood 8.3 mg/dL (8.5-10.1); Chloride, Blood 95 mmol/L (98-108); Creatinine, Blood 0.66 mg/dL (0.60-1.20); Glomerular Filtration Rate >60 (60-); Glucose, Blood 140 mg/dL (70-99); Potassium, Blood 4.7 mmol/L (3.5-5.5); Sodium, Blood 134 mmol/L (136-145)
--- NOTE | 2021-04-11 06:12 | NUR ---
SHIFT SUMMARY: PATIENT A&0 X4, VS STABLE T/O SHIFT, AND INTERACTING WITH STAFF. PATIENT IS IMPROVED FROM PREVIOUS NOC SHIFTS AND STAYED ON 50L/50% HIFLOW NC ALL SHIFT WITH >94% O2 SATS. STAT LOCK ON PATIENT'S RIGHT LEG WAS TOO HIGH AND PULLED CATHETER TUBING AGAINST PENIS HEAD CAUSING A WOUND. STAT LOCK WAS MOVED TO LEFT LEG. NO ADVERSE EVENTS THIS SHIFT. WILL REPORT TO ONCOMING SHIFT.
--- NOTE | 2021-04-11 17:41 | NUR ---
PT SUMMARY: NO ACUTE CHANGE. TITRATED DOWN TO 40L 45% FIO2 ON HEATED HIFLO SATS ABOVE 90%, STILL GETS SOB WITH EXERTION, THE REST OF THE VITALS STABLE, AFEBRILE. PT WAS ABLE TO WORK WITH PT/OT GOT UP IN THE RECLINER CHAIR FOR DINNER, DESATS TO LOW 80'S BUT RECOVERS QUICK. PT RECEIVED A BED BATH TODAY. EATING AND DRINKING ADEQUATELY. DENIES ANY PAIN/DISCOMFORT FOR THE SHIFT, WELCH DRAINING PATENT VIA GRAVITY, ABLE TO MAKE NEEDS KNOWN. CAME IN TO VISIT, PROVIDED UPDATES REGARDING THE PT. NO OTHER ISSUES REPORTED. WILL REPORT TO ONCOMING SHIFT
[2021-04-12 03:48] LABS: BASOPHILS ABSOLUTE AUTO 0.05 K/mm3 (0.00-0.23); BASOPHILS PERCENT AUTO 0 % (0-2); EOSINOPHILS PERCENT AUTO 0 % (0-6); Hematocrit 43.2 % (37.0-53.0); Hemoglobin 14.6 g/dL (13.5-17.5); IMMATURE GRAN ABSOLUTE AUTO 0.27 K/mm3 (0.00-0.10); IMMATURE GRAN PERCENT AUTO 1 % (0-1); LYMPHOCYTES ABSOLUTE AUTO 0.24 K/mm3 (0.84-5.20); LYMPHOCYTES PERCENT AUTO 1 % (21-46); MONOCYTES ABSOLUTE AUTO 0.98 K/mm3 (0.16-1.47); MONOCYTES PERCENT AUTO 5 % (4-13); Mean Corpuscular HGB 29.4 pg (26.0-34.0); Mean Corpuscular HGB Conc 33.8 g/dL (31.5-36.5); Mean Corpuscular Volume 87 fL (80-100); Mean Platelet Volume 12.6 fL (9.1-12.4); NEUTROPHILS ABSOLUTE AUTO 18.62 K/mm3 (1.96-9.15); NEUTROPHILS PERCENT AUTO 92 % (41-73); Platelet Count 168 K/mm3 (150-400); RDW Coefficient Variation 14.6 % (11.7-14.2); RDW Standard Deviation 46.6 fL (35.1-46.3); Red Blood Cell Count 4.96 M/mm3 (4.30-5.90); White Blood Cell Count 20.16 K/mm3 (4.00-11.30)
[2021-04-12 04:18] LABS: Anion Gap 8 mmol/L (6-16); Blood Urea Nitrogen 28 mg/dL (8-24); Bun/Creatinine Ratio 45.7 (12.0-20.0); CO2, Blood 31 mmol/L (21-32); Calcium, Blood 8.4 mg/dL (8.5-10.1); Chloride, Blood 95 mmol/L (98-108); Creatinine, Blood 0.61 mg/dL (0.60-1.20); Glomerular Filtration Rate >60 (60-); Glucose, Blood 142 mg/dL (70-99); Potassium, Blood 4.4 mmol/L (3.5-5.5); Sodium, Blood 134 mmol/L (136-145)
--- NOTE | 2021-04-12 06:03 | NUR ---
SHIFT SUMMARY NO ACUTE EVENTS THIS SHIFT. PT ALERT AND ORIENTED X4. WITHDRAWN. RESPONDS WITH SHORT ANSWERS. ON CPAP 10 45% FIO2 THROUGHOUT NIGHT, 40L 45% FIO2 AIRVO WHILE AWAKE, MAINTAINING O2 SATS OVER 94%. HR 70'S-80'S NSR. BP STABLE. WELCH DRAINING TALAT COLORED URINE TO GRAVITY. IN BED SLEEPING WITH CALL ALARM AT SIDE. WILL CONTINUE TO MONITOR UNTIL REPORT GIVEN
--- NOTE | 2021-04-12 17:46 | NUR ---
SHIFT SUMMARY PT ALERT AND ORIENTED X 4. HR STABLE. BP STABLE. NO CP OR PRESSURE. OXYGEN SATURATION MAINTAINED ABOVE 92% ON AIRVO. SEE EHR FOR AIRVO SETTINGS. PT UP IN CHAIR. WORKED WITH PT TODAY. PT'S AT BEDSIDE. PT EAGER TO DO PT EXERCISES. WORKING ON PT EXERCISES WITH AT BEDSIDE. WILL CONT TO MONITOR UNTIL REPORT GIVEN TO NIGHTSHIFT RN.
[2021-04-13 04:16] LABS: BASOPHILS ABSOLUTE AUTO 0.03 K/mm3 (0.00-0.23); BASOPHILS PERCENT AUTO 0 % (0-2); EOSINOPHILS PERCENT AUTO 0 % (0-6); Hematocrit 41.1 % (37.0-53.0); IMMATURE GRAN ABSOLUTE AUTO 0.19 K/mm3 (0.00-0.10); IMMATURE GRAN PERCENT AUTO 1 % (0-1); LYMPHOCYTES ABSOLUTE AUTO 0.28 K/mm3 (0.84-5.20); LYMPHOCYTES PERCENT AUTO 2 % (21-46); MONOCYTES PERCENT AUTO 4 % (4-13); Mean Corpuscular HGB 29.8 pg (26.0-34.0); Mean Corpuscular HGB Conc 34.1 g/dL (31.5-36.5); Mean Corpuscular Volume 87 fL (80-100); Mean Platelet Volume 12.3 fL (9.1-12.4); NEUTROPHILS ABSOLUTE AUTO 13.69 K/mm3 (1.96-9.15); NEUTROPHILS PERCENT AUTO 93 % (41-73); Platelet Count 155 K/mm3 (150-400); RDW Coefficient Variation 14.6 % (11.7-14.2); RDW Standard Deviation 46.5 fL (35.1-46.3); White Blood Cell Count 14.79 K/mm3 (4.00-11.30)
[2021-04-13 05:01] LABS: Anion Gap 9 mmol/L (6-16); Blood Urea Nitrogen 30 mg/dL (8-24); Bun/Creatinine Ratio 47.2 (12.0-20.0); CO2, Blood 29 mmol/L (21-32); Calcium, Blood 8.1 mg/dL (8.5-10.1); Chloride, Blood 96 mmol/L (98-108); Creatinine, Blood 0.64 mg/dL (0.60-1.20); Glomerular Filtration Rate >60 (60-); Glucose, Blood 141 mg/dL (70-99); Potassium, Blood 4.4 mmol/L (3.5-5.5); Sodium, Blood 134 mmol/L (136-145)
--- NOTE | 2021-04-13 05:12 | NUR ---
SHIFT SUMMARY PT ALERT AND ORIENTED X4. IN BETTER SPIRITS TONIGHT, LESS WITHDRAWN FROM PREVIOUS EVENING. WHILE AWAKE ON AIRVO 40L 40% FIO2. ON CPAP 10 40% FIO2. MAINTAINING SATS OVER 93%. NO C/O SOB, PAIN, OR DISCOMFORT. WELCH DRAINING YELLOW COLORED URINE TO GRAVITY. IN BED SLEEPING WITH CALL ALARM AT SIDE, WILL CONTINUE TO MONITOR
--- NOTE | 2021-04-13 07:35 | NUR ---
CARE ASSUMPTION PATIENT IS ALERT AND ORIENTATED X4. PATIENT REPORTS NO CHEST PAIN/PRESSURE, PAIN, HEADACHE, NUMBNESS/TINGLING. PATIENT BECOMES SHORT OF BREATH WITH EXERTION. PATIENT AMBULATES A STAND BY ASSIST WITH ONE PERSON. VSS. SPO2 >90% ON AIRVO 50L 45%. CALL LIGHT WITHIN REACH AND BED IN LOWEST POSITION. WILL CONTINUE TO MONITOR AND PROVIDE CARE.
[2021-04-13 13:44] LABS: Albumin, Blood 2.7 g/dL (3.4-5.0); Albumin/Globulin Ratio 0.7 (0.8-1.8); Bilirubin, Direct 0.3 mg/dL (0.0-0.3); Bilirubin, Indirect 0.5 mg/dL (0.1-0.7); Bilirubin, Total 0.8 mg/dL (0.1-1.0); Globulin, Blood 3.7 g/dL (2.2-4.0); Total Protein, Blood 6.4 g/dL (6.4-8.2)
--- NOTE | 2021-04-13 17:31 | NUR ---
SHIFT SUMMARY PATIENT A/OX4. VSS. SPO2>90% ON AIRVO 40L 45%. PATIENT CURRENTLY SITTING IN CHAIR WITH IN ROOM. PATIENT WORKED WITH BOTH OCCUPATIONAL THERAPY AND PHYSICAL THERAPY. THIS RN ENCOURAGED THE USE OF THE INCENTIVE SPIROMETER AND EXERCISE ACTIVITIES WHILE SITTING IN CHAIR. CALL LIGHT WITHIN REACH. WILL CONTINUE TO MONITOR AND PROVIDE CARE UNTIL HAND OFF WITH NEXT SHIFT.
--- NOTE | 2021-04-14 05:21 | NUR ---
PATIENT HAS BEEN SLOWLY IMPROVING ON OXYGEN DEMAND, CPAP AT NIGHT AT 10, AIRVO DURING THE DAY. PATIENT HAS A NONPRODUCTIVE COUGH STILL DIM IN BASES AND COARSE UPPER. DENIES CHEST PAIN, GOOD OUTPUT IN WELCH, DARK YELLOW, DAY REPORTED TALAT. WENT IN TO ASK ABOUT Q 2 TURNS, PATIENT EITHER RESTING WELL, OR DENIED TURN. BLOOD PRESSURE HAVE BEEN SYS 140'S AND MAVERICK 70-80'S. WILL CONTINUE TO MONITOR.
--- NOTE | 2021-04-14 09:06 | NUR ---
CARE ASSUMPTION PATIENT IS ALERT AND ORIENTATED X4. VSS. SPO2 >90% ON AIRVO 45L 30%. PATIENT REPORTS NO CHEST PAIN/PRESSURE, HEADACHE, NUMBNESS/TINGLING, OR SHORTNESS OF BREATH. PATIENT SITTING IN BED EATING BREAKFAST. PATIENT STATED HE WANTED TO GO HOME AND THIS RN GAVE EDUCATION ABOUT HIS CURRENT ILLNESS AND HIS OXYGEN REQUIRMENTS. ENCOURAGED DOING HIS INCENTIVE SPIROMETER EXERCISES, AND PATIENT AGREED TO GETTING UP TO CHAIR FOR LUNCH. CALL LIGHT WITHIN REACH AND BED IN LOWEST POSITION. WILL CONTINUE TO MONITOR AND PROVIDE CARE.
--- NOTE | 2021-04-14 17:40 | NUR ---
SHIFT SUMMARY PATIENT A/OX4. VSS. SPO2 >90% ON 6L NC. PATIENT SITTING IN CHAIR WITH AT CHAIRSIDE. NO ACUTE CHANGES THIS SHIFT. CALL LIGHT WITHIN REACH. WILL CONTINUE TO MONTIOR AND PROVIDE CARE UNTIL HAND OFF WITH NEXT SHIFT.
[2021-04-15 04:24] LABS: BASOPHILS ABSOLUTE AUTO 0.04 K/mm3 (0.00-0.23); BASOPHILS PERCENT AUTO 0 % (0-2); EOSINOPHILS PERCENT AUTO 0 % (0-6); Hematocrit 40.5 % (37.0-53.0); Hemoglobin 13.5 g/dL (13.5-17.5); IMMATURE GRAN ABSOLUTE AUTO 0.13 K/mm3 (0.00-0.10); IMMATURE GRAN PERCENT AUTO 1 % (0-1); LYMPHOCYTES PERCENT AUTO 2 % (21-46); MONOCYTES ABSOLUTE AUTO 0.52 K/mm3 (0.16-1.47); MONOCYTES PERCENT AUTO 4 % (4-13); Mean Corpuscular HGB 29.2 pg (26.0-34.0); Mean Corpuscular HGB Conc 33.3 g/dL (31.5-36.5); Mean Corpuscular Volume 88 fL (80-100); NEUTROPHILS ABSOLUTE AUTO 12.15 K/mm3 (1.96-9.15); NEUTROPHILS PERCENT AUTO 93 % (41-73); Platelet Count 122 K/mm3 (150-400); RDW Coefficient Variation 14.4 % (11.7-14.2); RDW Standard Deviation 45.9 fL (35.1-46.3); Red Blood Cell Count 4.63 M/mm3 (4.30-5.90); White Blood Cell Count 13.04 K/mm3 (4.00-11.30)
[2021-04-15 04:27] LABS: Mean Platelet Volume 13.3 fL (9.1-12.4)
[2021-04-15 05:03] LABS: Anion Gap 10 mmol/L (6-16); Blood Urea Nitrogen 33 mg/dL (8-24); Bun/Creatinine Ratio 45.5 (12.0-20.0); CO2, Blood 30 mmol/L (21-32); Calcium, Blood 8.1 mg/dL (8.5-10.1); Chloride, Blood 95 mmol/L (98-108); Creatinine, Blood 0.73 mg/dL (0.60-1.20); Glomerular Filtration Rate >60 (60-); Glucose, Blood 144 mg/dL (70-99); Potassium, Blood 4.2 mmol/L (3.5-5.5); Sodium, Blood 135 mmol/L (136-145)
--- NOTE | 2021-04-15 05:50 | NUR ---
end of shift summary: PATIENT CONTINUES TO IMPROVE WITH SPO2>95% ON BOTH THE 6L VIA NC AND AT NIGHT HOME CPAP. PATIENT APPEARS TO HAVE BETTER COLOR, STRENGTH AND ATTITUDE TO GO HOME. PATIENT HAS BEEN SR 70'S WITH BLOOD PRESSURES WITHIN RANGE. PATIENT HAD INCONTINENT BM 04/14/2020. URINE OUTPUT HAS BEEN GREAT. DESPITE POOR ORAL INTAKE. PATIENT CONTINUES TO REFUSE Q2 TURNS WHEN COMFORTABLE. WILL CONTINUE TO MONITOR.
--- NOTE | 2021-04-15 09:40 | NUR ---
CARE ASSUMPTION PATIENT ALERT AND ORIENTATED X4. PATIENT VSS. SPO2 >90% ON 6L HIGH FLOW NC. PATIENT REPORTS NO CHEST PAIN/PRESSURE, HEADACHE, NUMBNESS OR TINGLING, OR SHORTNESS OF BREATH AT REST. PATIENT SITTING IN BED EATING BREAKFAST AND STATED HE WOULD GET UP AT LUNCH TIME. PATIENT BED IN LOWEST POSITION AND CALL LIGHT WITHIN REACH. SEE ASSESSMENT SECTION FOR ASSESSMENT FINDINGS. WELCH IN PLACE DRIANING WITH GRAVITY. WILL COTINUE TO MONITOR AND PROVIDE CARE.
[2021-04-15] MEDS ORDERED: HYDCHL25 PO (15:24)
[2021-04-15] MEDS ORDERED: OLUMIANT2 MG PO (15:27)
--- NOTE | 2021-04-15 15:53 | NUR ---
DISCHARGE PATIENT AND RECEIVED DISCHARGE INSTRUCTIONS AND WENT OVER NEW MEDICATIONS. PATIETN BELONGINGS GATHERED AND ALL WITH THEM WHEN LEAVING. PATIENT WELCH AND BOTH IVS REMOVED. PATIENT LEFT VIA WHEELCHAIR WITH .
== END 2021-04-15 15:47 | disposition home health service (06) | DRG 177 ==
LOC: ER 07:44 → PCU 11:31 → ERHOLD 11:31 → PCU 13:16
PROVIDERS: Family Medicine; Internal Medicine; Internal Medicine Endocrinology, Diabetes & Metabolism; ADMIT Family Medicine
PROC: 3E0333Z Introduction of Anti-inflammatory into Peripheral Vein, Percutaneous Approach (ICD-10-PCS; principal; 2021-03-28)
PROC: XW033E5 Introduction of Remdesivir Anti-infective into Peripheral Vein, Percutaneous Approach, New Technology Group 5 (ICD-10-PCS; 2021-03-29)
PROC: 5A09457 Assistance with Respiratory Ventilation, 24-96 Consecutive Hours, Continuous Positive Airway Pressure (ICD-10-PCS; 2021-03-30)
PROC: 5A0945A Assistance with Respiratory Ventilation, 24-96 Consecutive Hours, High Flow/Velocity Cannula (ICD-10-PCS; 2021-04-06)
PROC: XW0DXM6 Introduction of Baricitinib into Mouth and Pharynx, External Approach, New Technology Group 6 (ICD-10-PCS; 2021-04-06)
DX: U07.1 COVID-19 (principal); J96.01 Acute respiratory failure with hypoxia; J12.82 Pneumonia due to coronavirus disease 2019; J44.0 Chronic obstructive pulmonary disease with (acute) lower respiratory infection; J44.1 Chronic obstructive pulmonary disease with (acute) exacerbation; N39.0 Urinary tract infection, site not specified; G93.1 Anoxic brain damage, not elsewhere classified; Z66 Do not resuscitate; E03.9 Hypothyroidism, unspecified; G47.33 Obstructive sleep apnea (adult) (pediatric); E78.5 Hyperlipidemia, unspecified; I10 Essential (primary) hypertension; I73.9 Peripheral vascular disease, unspecified; E87.5 Hyperkalemia; N40.0 Benign prostatic hyperplasia without lower urinary tract symptoms; B95.4 Other streptococcus as the cause of diseases classified elsewhere; Z85.118 Personal history of other malignant neoplasm of bronchus and lung; Z88.0 Allergy status to penicillin; Z87.891 Personal history of nicotine dependence; Z79.899 Other long term (current) drug therapy; Z79.51 Long term (current) use of inhaled steroids; Z79.52 Long term (current) use of systemic steroids; Z79.82 Long term (current) use of aspirin
CPT/HCPCS: 0241U; 36415; 36600; 71045; 71260; 80048; 80053; 80069; 80076; 81001; 82803; 83605; 83735; 83880; 84132; 84145; 84484; 85025; 86140; 87040; 87086; 93005; 93010; 94640; 94644; 94660; 94761; 94762; 96374; 96375; 97110; 97162; 97166; 97530; 97535; 99285-25; A9270; C9113; C9399; J0248; J0610; J0696; J1100; J1650; J1815; J2930; J7030; J7050; J7626; Q9967